=== PATIENT | female | born 1980 | race African-American/Black ===

== ENCOUNTER 2016-05-10 08:06 | Emergency (ER) | payer SELFPAY ==
[~2016-05-10] VITALS: Ht 160 cm; Wt 104.5 kg
[~2016-05-10 08:06] MED LIST: CEPH500 PO; CLIN300C3 PO; LORA10TA7 PO; RANI150T7 PO
[2016-05-10] MEDS ORDERED: ACYC200C PO (08:17)
[2016-05-10] MEDS ORDERED: AMIT10TA6 PO (08:17)
[2016-05-10] MEDS ORDERED: DiphenhydrAMINE HCL 50 MG/ML VIAL IVP ONE ×2 (08:30→12:00)
[2016-05-10] MEDS ORDERED: ONDANSETRON HCL 4 MG/2 ML VIAL IVP ONE (08:30)
[2016-05-10 10:19] LABS: BASOPHILS # (AUTO) 0.03 K/uL (0.00-0.20); BASOPHILS % (AUTO) 0.7 % (0.0-2.0); EOSINOPHILS # (AUTO) 0.03 K/uL (0.00-0.70); EOSINOPHILS % (AUTO) 0.81 % (1.0-6.0); HEMATOCRIT 37.5 % (36-46); HEMOGLOBIN 11.9 g/dL (12.0-16.0); LYMPHOCYTES # (AUTO) 1.5 K/uL (1.0-4.8); LYMPHOCYTES % (AUTO) 36.1 % (22.0-44.0); MEAN CORPUSCULAR HEMOGLOBIN 25.1 pg (26.0-34.0); MEAN CORPUSCULAR HGB CONC 31.7 G/dL (31.0-37.0); MEAN CORPUSCULAR VOLUME 79 fL (80-100); MONOCYTES # (AUTO) 0.5 K/uL (0.1-1.0); MONOCYTES % (AUTO) 12.6 % (2.0-9.0); NEUTROPHILS # (AUTO) 2.1 K/uL (1.8-7.7); NEUTROPHILS % (AUTO) 49.8 % (40.0-70.0); PLATELET COUNT (AUTO) 289 K/uL (150-450); RED BLOOD CELL COUNT(AUTO) 4.74 MIL/uL (4.00-5.20); RED CELL DISTRIBUTION WIDTH 16.7 % (11.5-14.5); WHITE BLOOD COUNT (AUTO) 4.3 K/uL (4.5-11.0)
[2016-05-10] MEDS ORDERED: MethylPREDNISolone SOD SUCC 125 MG/2 ML VIAL IVP ONE (10:30)
[2016-05-10] MEDS ORDERED: HYDROmorphone 2 MG/ML SYRINGE IVP ONE ×3 (10:30→13:30)
[2016-05-10] MEDS ORDERED: FAMOTIDINE 10 MG/ML 2 ML VIAL IVP ONE (10:30)
[2016-05-10 10:31] LABS: ANION GAP 11 mmol/L (8-16); CALCIUM, TOTAL 8.8 mg/dL (8.8-10.5); CARBON DIOXIDE 28 mmol/L (22-29); CHLORIDE 103 mmol/L (98-107); GLOMERULAR FILTR. RATE CALC > 60 mL/min (>60); POTASSIUM 3.8 mmol/L (3.5-5.1); SODIUM SERUM 142 mmol/L (136-145); UREA NITROGEN, BLOOD 12 mg/dL (7-18)
[2016-05-10 10:37] LABS: ALANINE AMINOTRANSFERASE 23 U/L (12-78); ASPARTATE AMINOTRANSFERASE 21 U/L (15-37); BILIRUBIN,TOTAL 0.3 mg/dL (0.1-1.0); TOTAL PROTEIN, SERUM 8.2 g/dL (6.4-8.2)
[2016-05-10 11:15] LABS: APPEARANCE,URINE CLEAR (CLEAR); GLUCOSE, URINE (UA) NEGATIVE (NEGATIVE); KETONES,URINE NEGATIVE (NEGATIVE); LEUKOCYTE ESTERASE ,URINE NEGATIVE (NEGATIVE); OCCULT BLOOD,URINE NEGATIVE (NEGATIVE); PROTEIN,URINE NEGATIVE (NEGATIVE)
[2016-05-10 11:18] LABS: RBC,URINE 0-2 /HPF (0-2); SQUAMOUS EPITHELIAL CELL,UR Moderate /LPF (None Seen); WBC,URINE 0-2 /HPF (0-5)
[2016-05-10] MEDS: DEXAMETHASONE SOD PHOS 4 MG/ML 5 ML VIAL IVP ONE ×2 (11:45→12:08)
[2016-05-10] MEDS ORDERED: SODIUM CHLORIDE 0.9% 1,000 ML IV ONE (12:00)
[2016-05-10] MEDS ORDERED: IOVERSOL 350 MG/ML 150 ML VIAL ONE (12:35)
[2016-05-10] MEDS ORDERED: SODIUM CHLORIDE 0.9% 100 ML ONE (12:35)
[2016-05-10] MEDS ORDERED: BARIUM SULFATE 0.1% SUSPENSION 450 ML BOTTLE PO ONE (13:00)
[2016-05-10] MEDS ORDERED: PROMETHAZINE HCL 25 MG/ML VIAL IM ONE (13:30)
[2016-05-10 14:00] VITALS: BP 146/76
== END 2016-05-10 14:47 | disposition left against medical advice (07) ==
LOC: EMS 08:07
DX: N83.209 Unspecified ovarian cyst, unspecified side (principal)
CPT/HCPCS: 36415; 71010; 76856; 80053; 81001; 84703; 85025; 96361; 96372; 96374; 96375; 96376; 99285; J1100; J1170; J1200; J2405; J2550; J2930; J3490; J7030; J7050; Q9967; Z7610

== ENCOUNTER 2016-05-12 23:52 | Emergency (ER) | payer SELFPAY ==
[~2016-05-12] VITALS: Ht 160 cm; Wt 77.3 kg
[~2016-05-12 23:52] MED LIST changes: +ACYC200C PO; +AMIT10TA6 PO
[2016-05-13 00:02] VITALS: BP 135/80
[2016-05-13] MEDS ORDERED: SODIUM CHLORIDE 0.9% 1,000 ML IV ONE (00:45)
[2016-05-13] MEDS ORDERED: ONDANSETRON HCL 4 MG/2 ML VIAL IVP ONE (00:45)
[2016-05-13] MEDS ORDERED: RANI150T7 PO (08:19)
[2016-05-13] MEDS ORDERED: LORA10TA7 PO (08:19)
== END 2016-05-13 02:27 | disposition left against medical advice (07) ==
LOC: EMS 23:53
DX: B02.29 Other postherpetic nervous system involvement (principal); K21.9 Gastro-esophageal reflux disease without esophagitis; Z88.0 Allergy status to penicillin; Z88.6 Allergy status to analgesic agent; Z88.8 Allergy status to other drugs, medicaments and biological substances; Z88.5 Allergy status to narcotic agent
CPT/HCPCS: 99283; J2405; J7030

== ENCOUNTER 2016-05-13 08:03 | Emergency (ER) | payer SELFPAY ==
[~2016-05-13] VITALS: Ht 157.5 cm; Wt 111.4 kg
[2016-05-13] MEDS ORDERED: LORA10TA7 PO (08:19)
[2016-05-13] MEDS ORDERED: RANI150T7 PO (08:19)
[2016-05-13 08:22] VITALS: BP 138/109
[2016-05-13] MEDS ORDERED: ACETAMINOPHEN 325 MG TABLET PO ONE (08:30)
[2016-05-13] MEDS ORDERED: ONDANSETRON HCL 4 MG TABLET PO ONE (08:30)
== END 2016-05-13 09:05 | disposition left against medical advice (07) ==
LOC: EMS 08:04
DX: R10.31 Right lower quadrant pain (principal); L29.9 Pruritus, unspecified; R03.0 Elevated blood-pressure reading, without diagnosis of hypertension; K21.9 Gastro-esophageal reflux disease without esophagitis; Z76.5 Malingerer [conscious simulation]; Z88.0 Allergy status to penicillin; Z88.1 Allergy status to other antibiotic agents; Z88.5 Allergy status to narcotic agent; Z88.8 Allergy status to other drugs, medicaments and biological substances
CPT/HCPCS: 99283

== ENCOUNTER 2016-05-29 18:53 | Emergency (ER) | payer SELFPAY ==
[~2016-05-29] VITALS: Ht 160 cm; Wt 90.9 kg
[~2016-05-29 18:53] MED LIST changes: -CEPH500 PO; -CLIN300C3 PO
[2016-05-29] MEDS ORDERED: LEVO25TA9 PO (19:14)
[2016-05-29] MEDS ORDERED: DiphenhydrAMINE HCL 50 MG/ML VIAL IVP ONE (20:45)
[2016-05-29] MEDS ORDERED: SODIUM CHLORIDE 0.9% 1,000 ML IV ONE (20:45)
[2016-05-29] MEDS ORDERED: HYDROmorphone 2 MG/ML SYRINGE IVP ONE ×2 (20:45→22:15)
[2016-05-29 21:49] VITALS: BP 137/83
[2016-05-29 22:06] LABS: BASOPHILS % (AUTO) 0.4 % (0.0-2.0); EOSINOPHILS % (AUTO) 1.9 % (1.0-6.0); HEMATOCRIT 33.2 % (36-46); HEMOGLOBIN 10.3 g/dL (12.0-16.0); LYMPHOCYTES # (AUTO) 1.9 K/uL (1.0-4.8); LYMPHOCYTES % (AUTO) 40.5 % (22.0-44.0); MEAN CORPUSCULAR HEMOGLOBIN 24.5 pg (26.0-34.0); MEAN CORPUSCULAR HGB CONC 31.1 G/dL (31.0-37.0); MEAN CORPUSCULAR VOLUME 79 fL (80-100); MONOCYTES # (AUTO) 0.8 K/uL (0.1-1.0); MONOCYTES % (AUTO) 17.7 % (2.0-9.0); NEUTROPHILS # (AUTO) 1.9 K/uL (1.8-7.7); NEUTROPHILS % (AUTO) 39.5 % (40.0-70.0); PLATELET COUNT (AUTO) 311 K/uL (150-450); RED BLOOD CELL COUNT(AUTO) 4.23 MIL/uL (4.00-5.20); RED CELL DISTRIBUTION WIDTH 16.4 % (11.5-14.5); WHITE BLOOD COUNT (AUTO) 4.8 K/uL (4.5-11.0)
[2016-05-29 22:13] LABS: ANION GAP 10 mmol/L (8-16); CALCIUM, TOTAL 8.2 mg/dL (8.8-10.5); CARBON DIOXIDE 26 mmol/L (22-29); CHLORIDE 106 mmol/L (98-107); CREATININE 0.72 mg/dL (0.60-1.30); GLOMERULAR FILTR. RATE CALC > 60 mL/min (>60); POTASSIUM 3.5 mmol/L (3.5-5.1); SODIUM SERUM 142 mmol/L (136-145); UREA NITROGEN, BLOOD 10 mg/dL (7-18)
[2016-05-29] MEDS ORDERED: ONDANSETRON HCL 4 MG/2 ML VIAL IVP ONE ×2 (22:15→22:45)
[2016-05-29 22:19] LABS: ALANINE AMINOTRANSFERASE 23 U/L (12-78); ALBUMIN 3.3 g/dL (3.4-5.0); ASPARTATE AMINOTRANSFERASE 21 U/L (15-37); BILIRUBIN,TOTAL 0.1 mg/dL (0.1-1.0); TOTAL PROTEIN, SERUM 7.2 g/dL (6.4-8.2)
[2016-05-29 22:27] LABS: RBC MORPHOLOGY COMMENT ABNORMAL RBC MORPH
[2016-05-29] MEDS ORDERED: BARIUM SULFATE 0.1% SUSPENSION 450 ML BOTTLE PO ONE (22:45)
== END 2016-05-30 00:39 | disposition left against medical advice (07) ==
LOC: EMS 18:54
DX: T78.1XXA Other adverse food reactions, not elsewhere classified, initial encounter (principal); R10.30 Lower abdominal pain, unspecified; R11.10 Vomiting, unspecified; Z88.0 Allergy status to penicillin; Z88.1 Allergy status to other antibiotic agents; Z88.5 Allergy status to narcotic agent; Z88.8 Allergy status to other drugs, medicaments and biological substances; X58.XXXA Exposure to other specified factors, initial encounter
CPT/HCPCS: 36415; 76856; 80053; 84703; 85025; 96361; 96374; 96375; 99285; J1170; J1200; J2405